=== PATIENT | female | born 1990 | race Caucasian/White ===

== ENCOUNTER 2020-11-29 16:24 | Inpatient (IN) ==
[2020-11-29] MEDS ORDERED: Buffered Lidocaine 1% SYRIN 1 ml INTRADERM ONE (17:25)
[2020-11-29] MEDS ORDERED: Lactated Ringers 1000 ml BAG 1,000 ML IV ONE ×2 (17:25→20:45)
[2020-11-29] MEDS ORDERED: Oxytocin in LR 20 UNITS/1,000 ML BAG IVPB SCH ×2 (18:00→23:00)
[2020-11-29] MEDS ORDERED: Lactated Ringers 1000 ml BAG 1,000 ML IV SCH ×3 (18:00→23:00)
[2020-11-29 18:20] LABS: Rapid COVID-19 Molecular Undetected (Undetected)
[2020-11-29 18:24] LABS: Urine Benzodiazepine Screen None Detected (None Detect); Urine Cannabinoids Screen None Detected (None Detect); Urine Opiates Screen None Detected (None Detect)
[2020-11-29 18:39] LABS: ABS Eosinophils 0.1 10^3/ul (0-0.6); ABS Lymphocytes 2.4 10^3/ul (1.0-4.8); ABS Monocytes 0.7 10^3/ul (0-0.8); ABS Neutrophils 6.8 10^3/ul (1.5-7.7); Eosinophil % 0.9 %; Hematocrit 37 % (35-47); Hemoglobin 12.5 g/dL (12.0-16.0); Lymphocyte % 23.5 %; Mean Corpuscular HGB Conc 34 g/dL (31-36); Mean Corpuscular Hemoglobin 30 pg (27-31); Mean Corpuscular Volume 89 fL (80-97); Mean Platelet Volume 7.1 fL (7.4-10.4); Nucleated Red Blood Cells % 0.1; Platelet Count 195 10^3/uL (150-450); Red Blood Count 4.16 10^6 /uL (3.70-4.87); Red Cell Distribution Width 15 % (10-15)
[2020-11-29] MEDS ORDERED: OBEPIDURAL 250 ML EPIDURAL ONE (19:30)
[2020-11-29] MEDS ORDERED: Sodium Citrate/Citric Acid LIQ 15 ML UDC PO PRN (20:45)
[2020-11-29] MEDS ORDERED: EPHEDrine (Pressors) 50 MG/ML VIAL IV PUSH PRN ×2 (20:45)
[2020-11-29] MEDS ORDERED: Phenylephrine 40 mcg/mL 10mL (400mcg) SYRINGE IV PUSH PRN ×2 (20:45)
[2020-11-29] MEDS ORDERED: Lactated Ringers 1000 ml BAG 500 ML IV PRN ×2 (20:45)
[2020-11-29] MEDS ORDERED: OBEPIDURAL 250 ML EPIDURAL SCH (21:00)
[2020-11-29 22:14] LABS: Urine Appearance Clear; Urine Color Yellow
[2020-11-29 22:15] LABS: Urine Specific Gravity 1.025 (1.002-1.030)
[2020-11-29 22:16] LABS: Urine Nitrite Negative (Negative)
[2020-11-29 22:17] LABS: Urine Blood 1+ (Negative); Urine Ketones Negative (Negative); Urine Protein 1+(30 mg/dL) (Negative); Urine Urobilinogen Negative (Negative); Urine pH 5 (5-9)
[2020-11-29 22:18] LABS: Urine Bilirubin Negative (Negative); Urine Glucose Negative (Negative); Urine Red Blood Cell 1+(3-5/hpf) (Absent); Urine White Blood Cell Trace(0-5/hpf) (Absent)
[2020-11-29] MEDS ORDERED: Witch Hazel PAD JAR TOPICAL PRN (22:36)
[2020-11-29] MEDS ORDERED: Dibucaine 1% OINT 28.35 GM TUBE PR PRN (22:36)
[2020-11-29] MEDS ORDERED: RHO D Immune Globulin (HUMAN) 300 MCG = 1,500 I.U. INJ IM PRN (22:36)
[2020-11-30 11:18] LABS: ABS Eosinophils 0.1 10^3/ul (0-0.6); ABS Lymphocytes 2.2 10^3/ul (1.0-4.8); ABS Monocytes 0.8 10^3/ul (0-0.8); ABS Neutrophils 9.7 10^3/ul (1.5-7.7); Eosinophil % 0.6 %; Hematocrit 33 % (35-47); Hemoglobin 11.7 g/dL (12.0-16.0); Lymphocyte % 17.4 %; Mean Corpuscular HGB Conc 35 g/dL (31-36); Mean Corpuscular Hemoglobin 31 pg (27-31); Mean Corpuscular Volume 88 fL (80-97); Mean Platelet Volume 7.2 fL (7.4-10.4); Platelet Count 174 10^3/uL (150-450); Red Blood Count 3.78 10^6 /uL (3.70-4.87); Red Cell Distribution Width 15 % (10-15); White Blood Count 12.8 10^3/uL (3.5-10.8)
[2020-11-30 20:14] VITALS: BP 105/61
== END 2020-11-30 22:52 | disposition home or self-care (01) | DRG 560 ==
LOC: MCHOBOUT 16:24 → MCHOB 17:29
PROVIDERS: ADMIT Midwife; ATTEND Midwife

== ENCOUNTER 2023-03-16 | Inpatient (IN) ==
[2023-03-16] MEDS ORDERED: Lidocaine 1% VIAL 10 MG/ML 30 ML VIAL INJ PRN (00:17)
[2023-03-16] MEDS ORDERED: Lactated Ringers 1000 ml BAG 1,000 ML IV ONE (00:17)
[2023-03-16 00:56] LABS: ABS Eosinophils 0.1 10^3/uL (0.0-0.5); ABS Lymphocytes 3.7 10^3/uL (1.0-4.8); ABS Monocytes 0.9 10^3/uL (0.0-0.9); ABS Neutrophils 5.7 10^3/uL (1.5-7.6); ABS Nucleated RBC 0.01 10^3/ul; Hematocrit 40.2 % (35-45); Hemoglobin 13.8 g/dL (11.5-14.3); Lymphocyte % 35.9 %; Mean Corpuscular Hemoglobin 30.3 pg (27-33); Mean Corpuscular Hgb Conc 34.2 g/dL (31-36); Mean Corpuscular Volume 88.7 fL (80-97); Mean Platelet Volume 7.7 fL (7.5-11.2); Nucleated Red Blood Cells % 0.1 %/100WBC (0.0-0.8); Platelet Count 197 10^3/uL (150-450); Red Blood Count 4.53 10^6/uL (3.63-4.92); Red Cell Distribution Width 13.8 % (12-17); White Blood Count 10.4 10^3/uL (3.8-11.8)
[2023-03-16] MEDS ORDERED: Oxytocin in LR 20,000 MILLI.UNIT/1,000 ML BAG IV ONE (01:36)
[2023-03-16] MEDS ORDERED: Witch Hazel PAD JAR TOPICAL PRN (01:43)
[2023-03-16] MEDS ORDERED: Dibucaine 1% OINT 28.35 GM TUBE PR PRN (01:43)
[2023-03-16] MEDS ORDERED: Oxytocin in LR 20,000 MILLI.UNIT/1,000 ML BAG IV SCH (01:45)
[2023-03-16] MEDS ORDERED: RHO D Immune Globulin (HUMAN) 300 MCG = 1,500 I.U. INJ IM ONE ×2 (02:00→18:00)
[2023-03-16] MEDS ORDERED: Lactated Ringers 1000 ml BAG 1,000 ML IV SCH (02:00)
[2023-03-17 08:49] LABS: ABS Eosinophils 0.1 10^3/uL (0.0-0.5); ABS Lymphocytes 3.3 10^3/uL (1.0-4.8); ABS Monocytes 0.6 10^3/uL (0.0-0.9); ABS Neutrophils 4.9 10^3/uL (1.5-7.6); Eosinophil % 1.4 %; Hematocrit 37.3 % (35-45); Hemoglobin 12.9 g/dL (11.5-14.3); Lymphocyte % 36.6 %; Mean Corpuscular Hemoglobin 30.7 pg (27-33); Mean Corpuscular Hgb Conc 34.5 g/dL (31-36); Mean Platelet Volume 7.5 fL (7.5-11.2); Platelet Count 164 10^3/uL (150-450); Red Blood Count 4.19 10^6/uL (3.63-4.92); Red Cell Distribution Width 13.9 % (12-17); White Blood Count 8.9 10^3/uL (3.8-11.8)
[2023-03-17 14:08] VITALS: BP 101/56
== END 2023-03-17 15:00 | disposition home or self-care (01) | DRG 560 ==
LOC: MCHOBOUT → MCHOB 00:17
PROVIDERS: ADMIT Midwife; ATTEND Midwife